=== PATIENT | male | born 1955 | race Native Hawaiian/Other Pacific Islander ===

== ENCOUNTER → 2019-03-22 | Outpatient (CLI) | payer BC ==
[~2019-03-22] VITALS: Ht 180.3 cm; Wt 85.3 kg
[~2019-03-22] MED LIST: CALCIUM500 MG PO; FOLGARD TABLET1 EAC1 PO; GLUCOPHAGE1000 MG PO; LIPITOR 10 MG10 M1 PO; VIAGRA100 MG PO
[2019-03-22 08:24] VITALS: BP 133/76
[2019-03-22 08:25] LABS: HEMATOCRIT 43.3 % (42.0-52.0); HEMOGLOBIN 14.8 gm/dL (14.0-18.0); MCH 31.1 pg (26.0-34.0); MCHC 34.1 g/dL (28.0-37.0); MCV 91.1 fL (80.0-100.0); RBC 4.75 mil/uL (4.50-6.00); WBC 4.7 thou/uL (4.0-11.0)
[2019-03-22 08:29] LABS: CALCIUM 9.6 mg/dL (8.5-10.1)
--- NOTE | 2019-03-22 08:46 | EKG ---
[address] [address] ELECTROCARDIOGRAM REPORT Name: KSENIA MORRISSEY [id number] Admission: 03/22/19 Attend Phys: Gonzalez Hyman Discharge: Date of : 53 Report #: [id number] THIS REPORT FOR: //name// [facility] Test Date: 2019-03-22 Test Time: 08:08:49 Pat Name: KSENIA MORRISSEY Department: Room: Gender: M Superintendent Recreation: Tyrell GREGG : 1955 Requested By: Gonzalez Hyman Order Number: [id number] MD: Sandor Starkey Measurements Intervals [place] Rate: 75 P: 73 RI: 138 QRS: -22 QRSD: 87 T: 31 QT: 370 QTc: 414 Interpretive Statements Sinus rhythm Borderline left axis deviation Borderline low voltage, extremity leads No previous ECG available for comparison Electronically Signed On 03-22-2019 8:45:43 INDIVIDUAL PENSION CONSULTANT by Sandor Starkey [email or web address] <ELECTRONICALLY SIGNED> By: Sandor Starkey MD 03/22/19 0845 7 Sandor Starkey MD /THANG
--- NOTE | 2019-04-09 02:00 | CATHLAB ---
[facility] [address] [place] [address] INVASIVE PROCEDURE REPORT Name: KSENIA MORRISSEY Room #: REG Najma#: [id number] Admission: 03/22/19 Attend Phys: Gonzalez Arreola Discharge: Date of : 53 Report #: [id number] THIS REPORT FOR: //name// APPROVED REPORT Study performed: 03/22/2019 09:30:01 Patient Details Patient Status: Out-Patient Room #: The patient is a 63 year-old male Event Personnel Gonzalez Hyman Plush Cutter, Lucía Dutton RN RN, Areli Vick Partnoy, Nancy RTR, WOOL SORTER Monitor, Shannan Green RTR Monitor, James Gómez RN Procedures Performed Art Access - R femoral artery* Left Heart Cath w/or w/o Coronaries [id number] [facility] [id number] Initial Mod Sed Same Phys/QHP 5y [id number] Hemostasis with Manual pressure, supervision of conscious sedation Indication Positive stress test, Chest pain Procedure Narrative The Right Groin^ was infiltrated with 1% Lidocaine subcutaneous anesthesia. A PINNACLE 4FR Sheath #[id number] sheath was inserted into the RFA^. Coronary angiography was performed using coronary diagnostic catheters. The right coronary system was accessed and visualized with a JR4 catheter. The left coronary system was accessed and visualized with a JL4 catheter. Hemostasis was obtained with manual pressure following sheath removal without any complications. The patient tolerated the procedure well and there were no complications associated with the procedure. There was no hematoma. Intraoperative Conscious Sedation Sedation start time: 9:41 Case end Time: 10:09 Versed 2 mg Fluoro Time: 1.54 minutes Dose: DAP 3150.40 cGycm2 444 mGy Contrast Type and Amount: Omnipaque 55 ml [facility] [address] [place] [address] INVASIVE PROCEDURE REPORT Name: KSENIA MORRISSEY Room #: REG [facility]#: [id number] Admission: 03/22/19 Attend Phys: Gonzalez Arreola Discharge: Date of : 53 Report #: [id number] Coronary Angiography The patient's coronary anatomy is right dominant. Diagnostic Cath Left Main Normal origin and caliber bifurcates that into the descending left circumflex is free of high-grade disease LAD Moderate caliber type III vessel which courses in the anterior interventricular sulcus. Septal and diagonal branches originate in its course all of which are free of high-grade disease. The vessel then tapers in its midportion to this distal portion and terminates as a posterior wall small-caliber vessel free of high-grade disease Diagonal 1 Small caliber vessel without high-grade lesions Circumflex Monitor large-caliber vessel coursing laterally in the left ventricle. It gives rise to several branches well which are free of high-grade disease. The vessel itself is mostly this marginal branch with only a small caliber terminal circumflex OM1 Moderate caliber vessel on the lateral aspect of the heart without high-grade disease Right Coronary Moderate caliber vessel normal origin courses in the AV groove due to Shi gives rise to small marginal branch free of high-grade disease and then courses to the crux of the heart giving her some posterior descending artery and terminating and posterior lateral branch which are free of high-grade disease R PDA Moderate caliber vessel coursing towards the apex without high-grade lesions Left Ventriculography Left Ventriculography was not performed. Hemodynamics The aortic pressure is 120/54 mmHg with a mean of 81 mmHg. The left ventricular pressure is 133/8 mmHg with a mean of mmHg. The left ventricular end diastolic pressure is 23 mmHg. Conclusion 1. Minimal coronary disease 2. Normal hemodynamics Recommendations [facility] [address] [place] [address] INVASIVE PROCEDURE REPORT Name: KSENIA MORRISSEY Room #: REG [facility]#: [id number] Admission: 03/22/19 Attend Phys: Gonzalez Arreola Discharge: Date of : 53 Report #: [id number] Cardiac Risk Reduction Program Medical Therapy <ELECTRONICALLY SIGNED> By: Gonzalez Hyman MD 04/09/19 0159 0159 0159 Gonzalez Hyman MD /INF
== END | disposition home or self-care (01) ==
LOC: CATH 07:39
PROVIDERS: Internal Medicine
DX: R07.9 Chest pain, unspecified (principal); I25.10 Atherosclerotic heart disease of native coronary artery without angina pectoris; R94.39 Abnormal result of other cardiovascular function study; E11.9 Type 2 diabetes mellitus without complications; E78.5 Hyperlipidemia, unspecified; D64.9 Anemia, unspecified; Z98.890 Other specified postprocedural states; Z79.899 Other long term (current) drug therapy